=== PATIENT | male | born 1995 | race African-American/Black ===

== ENCOUNTER 2018-11-07 15:26 | Emergency (ER) | payer MEDICAID ==
[~2018-11-07] VITALS: Ht 167.6 cm; Wt 76.0 kg
[2018-11-07] MEDS ORDERED: KETOROLAC 30MG/ML VIAL IM ONE (17:00)
[2018-11-07 17:12] VITALS: BP 142/70
[2018-11-07 18:04] LABS: CLARITY URINE CLEAR (CLEAR); COLOR URINE YELLOW (YELLOW); KETONES URINE NEGATIVE (NEGATIVE); LEUKOCYTE ESTERASE URINE NEGATIVE (NEGATIVE); NITRITE URINE NEGATIVE (NEGATIVE); OCCULT BLOOD URINE NEGATIVE (NEGATIVE); PH URINE 7.5 (4.5-8.0); PROTEIN URINE NEGATIVE (NEGATIVE); SPECIFIC GRAVITY URINE 1.021 (1.005-1.030); UROBILINOGEN URINE 0.2 E.U./dL (0.2-1.0)
== END 2018-11-07 18:23 | disposition home or self-care (01) ==
LOC: ER 15:44
DX: M54.5 Low back pain (principal)
CPT/HCPCS: 81003; 96372; 99283; J1885

== ENCOUNTER 2019-05-18 09:31 | Emergency (ER) | payer MEDICAID ==
[~2019-05-18] VITALS: Ht 175.3 cm; Wt 83.0 kg
[2019-05-18 10:46] VITALS: BP 137/87
== END 2019-05-18 13:03 | disposition left against medical advice (07) ==
LOC: ER 09:31
DX: Z53.21 Procedure and treatment not carried out due to patient leaving prior to being seen by health care provider (principal)